=== PATIENT | male | born 1990 | race Caucasian/White ===

== ENCOUNTER 2018-06-16 21:23 | Emergency (ER) | payer SELFPAY ==
[~2018-06-16] VITALS: Ht 180.3 cm; Wt 72.6 kg
[2018-06-16] MEDS ORDERED: SODIUM CHLORIDE 0.9% 1000ML 1,000 ML IV ONE (22:00)
--- NOTE | 2018-06-17 | Diagnostic Imaging Report ---
History:Trauma to the right jaw about a month ago Comparison studies: None Technique: Axial images were obtained through the facial region. Coronal and sagittal images reconstructed from the axial data. Intravenous contrast: 100 cc of Omnipaque 300. Findings: Soft tissues: Soft tissue swelling and fatty stranding in the right foramen and soft tissues. Subcentimeter hypodensity abutting the buccal surface at the level of the mandibular angle Bones: Mildly displaced fracture of the right mandibular angle, with involvement of the alveolar canal and root of the non erupted dentition #32 Prominent right level 1 lymph node. Orbits: Globes: Intact. Extra or intraconal abnormalities: None. Paranasal sinuses: Clear IMPRESSION: 1. Subacute/early chronic nonunited mildly displaced right mandibular angle fracture with involvement of the canal and non erupted dentition #32. 2. Soft tissue swelling of the right premandibular soft tissues with associated subcentimeter fluid collection, these may represent evolving hematoma, phlegmonous changes and superimposed abscess is other possibility. 3. Reactive right level. Signed by: DR Thomas Blackwood M.D. on 06/16/2018 11:13 PM
== END 2018-06-17 00:53 | disposition home or self-care (01) ==
LOC: FSED 21:23
DX: R68.84 Jaw pain (principal); S02.651A Fracture of angle of right mandible, initial encounter for closed fracture; Y04.0XXA Assault by unarmed brawl or fight, initial encounter; Y92.008 Other place in unspecified non-institutional (private) residence as the place of occurrence of the external cause
CPT/HCPCS: 70487; 80053; 85025; 99284; J7030